=== PATIENT | female | born 1965 | race African-American/Black ===

== ENCOUNTER 2017-07-31 11:06 | Emergency (ER) | payer MEDICAID ==
[2017-07-31 11:52] LABS: ADD MAN DIFF? NO
[2017-07-31 12:02] LABS: BASO % 0 % (0-3); EOS # 0.1 x10^3/uL (0.0-0.7); EOS % 1 % (0-3); HEMATOCRIT 46.1 % (36.0-47.0); HEMOGLOBIN 15.5 g/dL (12.0-15.5); LYMPH % 51 % (24-48); MEAN CORPUSCULAR HEMOGLOBIN 27 pg (25-35); MEAN CORPUSCULAR HGB CONC 34 g/dL (31-37); MEAN CORPUSCULAR VOLUME 80 fL (79-100); MONO # 0.5 x10^3/uL (0.0-1.1); MONO % 9 % (0-9); NEUT # 2.3 x10^3uL (1.8-7.7); NEUT % 39 % (31-73); PLATELET COUNT 283 x10^3/uL (140-400); RED BLOOD COUNT 5.81 x10^6/uL (3.50-5.40); RED CELL DISTRIBUTION WIDTH 14.2 % (11.5-14.5); WHITE BLOOD COUNT 5.9 x10^3/uL (4.0-11.0)
[2017-07-31 12:03] LABS: ANION GAP 16 (6-14); BLOOD UREA NITROGEN 11 mg/dL (7-20); BUN/CREATININE RATIO 12 (6-20); CALCIUM 10.2 mg/dL (8.5-10.1); CARBON DIOXIDE 24 mmol/L (21-32); CHLORIDE 97 mmol/L (98-107); CREATININE 0.9 mg/dL (0.6-1.0); GFR 79.3; GLUCOSE 102 mg/dL (70-99); POTASSIUM 3.5 mmol/L (3.5-5.1); SODIUM 137 mmol/L (136-145)
[2017-07-31 12:09] LABS: ALBUMIN 4.1 g/dL (3.4-5.0); ALBUMIN/GLOBULIN RATIO 0.8 (1.0-1.7); ALK PHOS 117 U/L (46-116); ALT (SGPT) 91 U/L (14-59); AST (SGOT) 64 U/L (15-37); TOTAL BILIRUBIN 0.5 mg/dL (0.2-1.0); TOTAL PROTEIN 9.3 g/dL (6.4-8.2)
== END 2017-07-31 14:29 | disposition home or self-care (01) ==
LOC: ER 11:06
DX: R06.4 Hyperventilation (principal); F41.0 Panic disorder [episodic paroxysmal anxiety]; F41.9 Anxiety disorder, unspecified; F32.9 Major depressive disorder, single episode, unspecified; I10 Essential (primary) hypertension; F43.9 Reaction to severe stress, unspecified; Z87.891 Personal history of nicotine dependence; Z98.51 Tubal ligation status; Z88.8 Allergy status to other drugs, medicaments and biological substances
CPT/HCPCS: 36415; 70450; 71045; 80053; 84484; 85025; 93005; 96374; 99285-25; J2060

== ENCOUNTER 2018-01-26 14:35 | Emergency (ER) | payer SELFPAY, OTHER, MEDICAID ==
[2018-01-26] MEDS: ACETAMINOPHEN 325 MG TABLET. PO (16:21)
== END 2018-01-26 17:14 | disposition home or self-care (01) ==
LOC: ER 14:35
DX: G89.29 Other chronic pain (principal); M54.5 Low back pain; R29.6 Repeated falls; F41.9 Anxiety disorder, unspecified; F32.9 Major depressive disorder, single episode, unspecified; I10 Essential (primary) hypertension; Z98.51 Tubal ligation status; Z88.5 Allergy status to narcotic agent; Z88.8 Allergy status to other drugs, medicaments and biological substances
CPT/HCPCS: 99284

== ENCOUNTER → 2019-11-30 | Outpatient (CLI) | payer OTHER ==
[2018-01-26 17:17] VITALS: BP 107/57
[~2019-11-30] MED LIST: AMIT25TA PO; AMLO5TAB10 PO; AMLO5TAB4 PO; ASPI-482 PO; BENZ0.5T32 PO; CALC200T3 PO; CITA20TA9 PO; DICL100G54 TP; DILT240C2 PO; HYDR-2145 PO; HYDR50CA PO; HYDR50TA6 PO; LEXAPRO20 MG PO; MELA3TAB4 PO; PANT40TA77 PO; RISP2TAB3 PO; TRAM50TA PO; TRIA1CAP PO; TRIA1CAP3 PO
--- NOTE | 2019-11-30 13:20 | RAD ---
EXAM: Lumbar spine, 3 views. HISTORY: Pain. COMPARISON: None. FINDINGS: 3 views of the lumbar spine are obtained. There is no listhesis. The vertebral bodies are normal in height. There is multilevel endplate remodeling. There is disc space narrowing at the lumbosacral junction. IMPRESSION: No acute osseous finding. Multilevel degenerative change primarily at the lumbosacral junction. Electronically signed by: Rosemary Lamb MD (11/30/2019 1:17 PM) [id number]
== END | disposition home or self-care (01) ==
LOC: RAD 11:54
PROVIDERS: ATTEND Nurse Practitioner
DX: M47.817 Spondylosis without myelopathy or radiculopathy, lumbosacral region (principal); M48.07 Spinal stenosis, lumbosacral region
CPT/HCPCS: 72100

== ENCOUNTER → 2019-12-02 | Outpatient (CLI) | payer OTHER ==
[2018-01-26 17:17] VITALS: BP 107/57
--- NOTE | 2019-12-02 09:29 | RAD ---
Pelvic ultrasound HISTORY: Pelvic pain. Prior endometrial ablation. COMPARISON: None are available. Transabdominal scan: The ovaries are not visualized. Uterus is suboptimally seen. Endovaginal scan: Uterus measures 8.4 cm x 3.8 cm x 5.0 cm. Uterus is diffusely heterogeneous with multiple focal masses and calcifications. Proximal anterior lesion measures 16 x 17 x 13 mm. Lesion in the posterior uterine body measures 20 x 20 x 14 mm. Anterior and posterior lesions in the lower uterus measure 17 x 15 x 15, and 18 x 13 x 12, respectively. No areas of concerning hypervascularity are identified. Endometrial stripe measures 1 mm thick and is poorly defined. Right ovary measures 2.0 x 1.0 x 1.0 cm with intact blood supply. No significant ovarian mass is identified. Left ovary cannot be visualized. IMPRESSION: 1. Multiple uterine masses. These would most commonly represent uterine fibroids. MRI of the uterus could further evaluate, as indicated. 2. Nonvisualized left ovary. Electronically signed by: Jay Contreras MD (12/02/2019 9:26 AM) [id number]
== END ==
LOC: US 08:33
PROVIDERS: ATTEND Obstetrics & Gynecology
DX: D25.9 Leiomyoma of uterus, unspecified (principal); R19.09 Other intra-abdominal and pelvic swelling, mass and lump
CPT/HCPCS: 76830; 76856

== ENCOUNTER 2020-01-11 12:31 | Emergency (ER) | payer OTHER ==
[2018-01-26 17:17] VITALS: BP 107/57
== END 2020-01-11 13:02 | disposition left against medical advice (07) ==
LOC: ER 12:31
DX: R51 Headache (principal); Z53.21 Procedure and treatment not carried out due to patient leaving prior to being seen by health care provider

== ENCOUNTER → 2020-02-03 | Outpatient (CLI) | payer OTHER ==
[2018-01-26 17:17] VITALS: BP 107/57
[2020-02-04 00:08] LABS: HEMOGLOBIN A1C 5.6 % (4.8-5.6)
[2020-02-06 16:11] LABS: ALBUM 3.6 g/dL (2.9-4.4); ALPHA 1 0.2 g/dL (0.0-0.4); ALPHA 2 0.7 g/dL (0.4-1.0); BETA 1.2 g/dL (0.7-1.3); GAMMA 1.1 g/dL (0.4-1.8); PROTEIN TOTAL 6.8 g/dL (6.0-8.5); SPEP AG RATIO 1.1 (0.7-1.7)
[2020-02-06 19:10] LABS: ANA INTERP Negative (.)
== END | disposition home or self-care (01) ==
LOC: LAB 10:20
PROVIDERS: ATTEND Nurse Practitioner Family
DX: R20.2 Paresthesia of skin (principal)
CPT/HCPCS: 36415; 82607; 82746; 83036; 84165; 84443; 86038; 86140

== ENCOUNTER → 2020-02-22 | Outpatient (CLI) | payer OTHER ==
[2018-01-26 17:17] VITALS: BP 107/57
[~2020-02-22] MED LIST changes: +ZOLPIDEM 5 MG TABLET. PO ONE
--- NOTE | 2020-02-23 12:21 | SLEEP ---
DATE OF STUDY: 02/22/2020 OBJECTIVE: The patient is a 54-year-old female with excessive somnolence, snoring, observed apnea. [place] sleep score 8, weight 215 pounds, body mass index 35, height 5 feet 6 inches. INTERPRETATION: Sleep architecture is characterized by a sleep efficiency of 86% across the 7.6 hours of recording time. Stage volumes are appropriate for age. Sleep onset latency is 32 minutes. Respiratory monitoring shows 11 apneas, 48 hypopneas for an apnea-hypopnea index of 9.1 events per hour of sleep. The patient did not meet criteria for a split night study. Minimum oxygen saturation is 86%. Periodic limb movements of sleep occur at the rate of 1 per hour. No significant cardiac arrhythmias are observed. IMPRESSION: Abnormal polysomnogram showing obstructive sleep apnea and hypopnea. RECOMMENDATIONS: 1. The patient should return to the lab for CPAP/BiPAP titration study or alternatively could be placed on empiric variable CPAP. 2. She should pursue weight loss and avoid sedatives and alcohol. Thank you for letting us help with the patient's care. MARIANELA GONZALES MD DR: JILLIAN/viktor JOB#: [id number] / [id number] LINO Krause
== END | disposition home or self-care (01) ==
LOC: SLPLAB 19:04
PROVIDERS: ATTEND Nurse Practitioner Family
DX: G47.33 Obstructive sleep apnea (adult) (pediatric) (principal); R40.0 Somnolence
CPT/HCPCS: 95810

== ENCOUNTER → 2020-03-20 | Outpatient (CLI) | payer OTHER ==
[2018-01-26 17:17] VITALS: BP 107/57
[~2020-03-20] MED LIST changes: -ZOLPIDEM 5 MG TABLET. PO ONE
--- NOTE | 2020-03-22 09:41 | SLEEP ---
DATE OF STUDY: 03/20/2020 POLYSOMNOGRAM OBJECTIVE: The patient is a 54-year-old female, previously studied on 02/22/2020 showing apnea-hypopnea index of 9.1 events per hour of sleep. She returned to the lab for a CPAP titration. Height 215 pounds, body mass index 35, height 5 feet 6 inches. [place] sleep score 10. INTERPRETATION: Sleep architecture is characterized by sleep efficiency of 92% across the 7.2 hours of recording time. Stage volumes are appropriate for age. Sleep onset latency is 4 minutes. Respiratory monitoring for this CPAP titration study shows an apnea-hypopnea index of 3.9 events per hour of sleep, with a minimum oxygen saturation of 84%. The patient is started on CPAP and at a setting of 9 cm, the apnea/hypopnea index is 1.9 events per hour of sleep. The patient did have some trouble tolerating the CPAP and tended to open her mouth that produced more apneas. No significant cardiac arrhythmias or periodic limb movements of sleep are observed. IMPRESSION: Successful CPAP titration using 9 cm, Respironics DreamWear nasal cushions, medium size. RECOMMENDATIONS: 1. The patient should be established on this CPAP level. 2. Avoid sedatives and alcohol and pursue weight loss. Thank you for letting us help with the patient's care. MARIANELA GONZALES MD DR: JILLIAN/viktor JOB#: [id number] / [id number] LINO Krause
== END | disposition home or self-care (01) ==
LOC: SLPLAB 18:58
PROVIDERS: ATTEND Nurse Practitioner Family
DX: G47.30 Sleep apnea, unspecified (principal)
CPT/HCPCS: 95811

== ENCOUNTER → 2020-04-19 | Outpatient (CLI) | payer OTHER ==
[2018-01-26 17:17] VITALS: BP 107/57
[~2020-04-19] MED LIST changes: +AMLO-186 PO; -AMLO5TAB10 PO
== END ==
LOC: LAB 09:52
PROVIDERS: ATTEND Nurse Practitioner Family
DX: R79.82 Elevated C-reactive protein (CRP) (principal)
CPT/HCPCS: 36415; 86140

== ENCOUNTER 2020-12-26 22:34 | Emergency (ER) | payer OTHER ==
[~2020-12-26] VITALS: Ht 167.6 cm; Wt 91.0 kg
[~2020-12-26 22:34] MED LIST changes: -HYDR50TA6 PO; +HYDR50TA9 PO; -RISP2TAB3 PO; +RISP2TAB78 PO
[2020-12-27 00:15] VITALS: BP 169/131
[2020-12-27] MEDS ORDERED: DEXAMETHASONE 4 MG TABLET PO ONE (02:00)
--- NOTE | 2020-12-27 02:35 | ED.ADGEN ---
Past Medical History Past Medical History: Anxiety, Depression, Endometriosis, Hypertension, Other Additional Past Medical Histor: HEART RHYTHM PROBLEMS; panick attack,PTSD. Past Surgical History: Tubal ligation Smoking Status: Current Every Day Smoker Alcohol Use: Occasionally Drug Use: None General Adult EDM: Chief Complaint: SORE THROAT HPI: HPI: Patient is a 55-year-old female who presents to the emergency room stating she feels like there is something in the back of her throat. She states that she had an endoscopy done last week. She states she has had this feeling for the last 2 or 3 days. She states that she has been drinking and eating some but feels like it is getting stuck. She denies any shortness of breath. She states that she is supposed to use a CPAP at night but has not been using it. She did try to use it last night but this did not help the feeling go away. She has tried to call her GI physician but he has not returned her phone call. Review of Systems: Review of Systems: Complete ROS is negative unless otherwise documented in HPI Current Medications: Current Medications Medications (Trade) Dose Ordered Sig/Natividad Start Time Stop Time Status Last Admin Dose Admin Dexamethasone (Decadron) 10 mg 1X ONCE 12/27/20 02:00 12/27/20 02:01 DC 12/27/20 02:04 10 MG Allergies: Allergies: Allergies Coded Allergies Type Severity Reaction Last Updated Verified hydrocodone Allergy Severe ANAPHALAXIS 01/26/18 Yes lisinopril Allergy Severe ANGIOEDEMA 11/27/14 Yes bisacodyl Adverse Reaction Intermediate RECTAL BLEEDING 10/04/13 Yes Physical Exam: PE: General: Awake, alert, NAD. Well Nourished, well hydrated. Cooperative HEENT: Atraumatic, EOMI, PERRL, airway patent, moist oral mucosa Neck: Supple, trachea midline, no stridor Respiratory: CTA bilaterally, normal effort, no wheezing/crackles CV: RRR, no murmur, cap refill <2 GI: Soft, nondistended, nontender, no masses MSK: No obvious deformities Skin: Warm, dry, intact Neuro: A&O x3, speech NL, sensory and motor grossly intact, no focal deficits Psych: Normal affect, normal mood, not suicidal or homicidal Current Patient Data: Vital Signs: Vital Signs Date Time Temp Pulse Resp B/P (MAP) Pulse Ox O2 Delivery O2 Flow Rate FiO2 12/27/20 00:15 98.2 87 20 169/131 (98) 96 Room Air 98.2 EKG: EKG: [] Heart Score: C/O Chest Pain: N/A Risk Factors: Risk Factors: DM, Current or recent (<one month) smoker, HTN, HLP, family history of CAD, obesity. Risk Scores: Score 0 - 3: 2.5% MACE over next 6 weeks - Discharge Home Score 4 - 6: 20.3% MACE over next 6 weeks - Admit for Clinical Observation Score 7 - 10: 72.7% MACE over next 6 weeks - Early Invasive Strategies Radiology/Procedures: Radiology/Procedures: [] Course & Med Decision Making: Course & Med Decision Making Pertinent Labs and Imaging studies reviewed. (See chart for details) Patient is a 55-year-old female who presents to the emergency room complaining of a globus sensation in the back of her throat. Patient was given Sprite to try to help with the sensation she is feeling. Patient states that this does fe el like it helped. She does not have any stridor or signs of respiratory difficulty. She does not have any swelling on exam. Airway appears to be clear. Lung sounds are normal. I discussed with her that she should follow-up with her GI specialist later today. Patient states that she feels well enough to go home. Patient's test results and vitals while in the ED were fully re viewed and discussed with the patient. Patient is stable and at this time does not need admission to the hospital. We have discussed strict return precautions and the importance of following up with their Primary Care Physician. Patient stated understanding and was given an opportunity to ask any questions. Patient is in agreement with plan. Dragon Disclaimer: Dragon Disclaimer: This electronic medical record was generated, in whole or in part, using a voice recognition dictation system. Departure Departure Impression: Primary Impression: Globus sensation Disposition: HOME / SELF CARE / HOMELESS Condition: STABLE Referrals: Ap BARNETT MD (PCP) Patient Instructions: Globus Syndrome DRAGAN MEJIA MD Dec 27, 2020 02:35
== END 2020-12-27 02:54 | disposition home or self-care (01) ==
LOC: ER 22:34
DX: F45.8 Other somatoform disorders (principal); I10 Essential (primary) hypertension; F17.200 Nicotine dependence, unspecified, uncomplicated; Z88.5 Allergy status to narcotic agent; Z88.6 Allergy status to analgesic agent; Z88.8 Allergy status to other drugs, medicaments and biological substances
CPT/HCPCS: 99283